=== PATIENT | female | born 1960 | race Two or more races ===

== ENCOUNTER 2016-07-18 18:21 | Emergency (ER) | payer MEDICAID ==
--- NOTE | 2016-07-18 19:36 | ED Physician Chart ---
Chief Complaint/HPI - Patient Information Allergies:: Allergies Allergy/AdvReac Type Severity Reaction Status Date / Time No Known Allergies Allergy Verified 07/18/16 18:30 Vitals:: Vital Signs - 8 hr 07/18/16 18:31 Temp 97.3 F HR 103 RR 16 BP 174/95 O2 Sat % 98 <Brian Harris - Last Filed: 07/18/16 21:25> - Patient Information Date Seen:: 07/18/16 Time Seen:: 19:10 Chief Complaint:: BODY ACHES, FATIGUE, ANXIETY, COUGH X 1WEEK History of Present Illness:: This 56-year-old female presents with a one-week history of multiple complaints consisting of severe anxiety, chills, body aches, cough productive of grayish sputum, nausea, vomiting, and diaphoresis. She thinks that she may have the flu or that a recent addition of medications, LATUDA, may be responsible. She has a past medical history of bipolar disorder and panic attacks. She denies any rash, angioedema, respiratory distress, or chest pain. She rates the severity of the combined symptoms as severe. Allergies:: Allergies Allergy/AdvReac Type Severity Reaction Status Date / Time No Known Allergies Allergy Verified 07/18/16 18:30 Vitals:: Vital Signs - 8 hr 07/18/16 18:31 Temp 97.3 F HR 103 RR 16 BP 174/95 O2 Sat % 98 <Amandeep Peterson - Last Filed: 07/19/16 09:56> Review of Systems - Review of Systems General/Constitutional: Fever, Chills, Diaphoresis, Loss of appetite Skin: No skin lesions, No rash, No bruising Head: Headache, No light-headedness Eyes: No loss of vision, No diplopia, Other ( Very light sensitive.) ENT: No earache, No nasal drainage, No sore throat, No tinnitus Neck: Neck pain, No swelling, No thyromegaly, No stiffness, No mass noted Cardio Vascular: No chest pain, No palpitations, No PND ( Mild respiratory distress.), No edema Pulmonary: Cough, No sputum, No wheezing GI: Nausea ( One episode of vomiting yesterday.), No diarrhea ( Generalized abdominal discomfort with no localized pain.), No melena, No constipation, No hematemesis G/U: No dysuria, No frequency, No hematuria ( Generalized arthralgias and myalgias.) Musculoskeletal: Back pain Psychiatric: Depression, Anxiety, No suicidal ideation, Other ( Prior history of bipolar disorder.) Hematopoietic: No bruising, No lymphadenopathy Allergic/Immuno: No urticaria, No angioedema Neurological: No syncope, No focal symptoms, No paresthesia, Headache, No seizure, No confusion, No vertigo <Amandeep Peterson - Last Filed: 07/19/16 09:56> Past Medical History - Past Medical History Past Medical History: HTN <Brian Harris - Last Filed: 07/18/16 21:25> Physical Exam - Physical Examination General/Constitutional: Awake, Well-developed, well-nourished, Alert, Ambulatory Other Gen/Cons comments:: People patient appears to be in moderate distress from Her complained of symptoms. Head: Atraumatic Eyes: Lids, conjuctiva normal, PERRL, EOMI Other Eyes comments:: No nystagmus. Skin: No ecchymosis, No lymphadenopathy Other Skin comments:: The patient has dry lips and chafing in the perioral region. ENMT: External ears, nose nl, Nasal exam nl, Oropharynx nl, Tonsils nl ( normal oral hydration.) Neck: Nontender, No JVD, No nuchal rigidity, No mass, No stridor Respiratory: Nl effort/Exclusion, Clear to Auscultation, No Wheeze/Rhonchi/ Rales ( The patient has a mild tachycardia in the 105 range. The rhythm is regular) Cardio Vascular: No murmur, gallop, rubs, NL S1 S2 ( The patient has good pulses in all four extremities.P) Other GI comments:: The abdomen is flat and nondistended. No surgical scars. Bowel sounds are active. Diffuse mild tenderness with no associated rebound or regarding. Rectal examination deferred at my discretion. Extremities: No tenderness or effusion, Full ROM, normal strength in all extremities, No edema ( No calf tenderness.) Neuro/Psych: Alert/oriented, DTR's symmetric, Normal sensory exam, Normal motor strength, Normal gait ( The patient's mood is and exaggerated anxiety and agitation. ) <Amandeep Peterson - Last Filed: 07/19/16 09:56> Labs/Radiology/EKG Results - Lab Results Results: Laboratory Tests 07/18/16 07/18/16 08:00 08:00 WBC 7.4 RBC 4.43 Hgb 13.4 Hct 38.9 MCV 87.8 MCH 30.2 MCHC Differential 34.4 RDW 12.1 Plt Count 278 MPV 7.8 Neutrophils % 68.9 Lymphocytes % 20.6 Monocytes % 6.9 Eosinophils % 3.2 Basophils % 0.4 Sodium 138 Potassium 3.5 Chloride 106 Carbon Dioxide 28.3 Anion Gap 7.2 BUN 11 Creatinine 0.8 Est GFR ( Amer) > 60.0 Est GFR (Non-Af Amer) > 60.0 BUN/Creatinine Ratio 13.8 Glucose 97 Calcium 9.6 <Brian Harris - Last Filed: 07/18/16 21:25> Assessment - Assessment General Assessment: CASE SUMMARY: this 56-year-old female with a prior history of bipolar disorder presents with a one-week history of severe anxiety, myalgias, and arthralgias. She's also had a cough productive of li sputum. just prior to onset of her symptoms her psychiatrist had added Latuda, whose side effects accounted for all the patients new complaints. Patient's complaints were addressed with ID Ativan and toradol with good relief. The patient was passed on to Dr. Longo for review of pending laboratory results. Laboratory results were within normal parameters. The patient was advised to follow up with her psychiatrist for adjustment of medications. Discharged in stable condition. <Amandeep Peterson - Last Filed: 07/19/16 09:56> ED Septic Shock - . Is Septic Shock (SBP<90, OR Lactate>4 mmol\L) present?: No - <6hrs of presentation: Vital Signs: Vital Signs - 8 hr 07/18/16 18:31 Temp 97.3 F HR 103 RR 16 BP 174/95 O2 Sat % 98 <Brian Harris - Last Filed: 07/18/16 21:25> - <6hrs of presentation: Vital Signs: Vital Signs - 8 hr 07/18/16 18:31 Temp 97.3 F HR 103 RR 16 BP 174/95 O2 Sat % 98 <Amandeep Peterson - Last Filed: 07/19/16 09:56> Reassessment (Disposition) - Reassessment Reassessment:: The patient's blood pressure was elevated (>120/80) but appears stable without evidence of hypertensive emergency or urgency. The patient was counseled about the risks hypertension urged to pursue outpatient monitoring and therapy within a week with her primary care physician. Patient's blood pressure was initially elevated when she arrived. Improved greatly after receiving the Ativan. The patient's labs are unremarkable. Discussed all the findings in detail with the patient. She feels much improved after the Ativan. We will give her a when necessary supply of Ativan. I have asked her to Follow-up with psychiatry. To discuss her medications. It is very likely she is suffering from a side effect for her medications. She will follow-up with her PCP and psychiatry within one to 2 days. Gave return to ER precautions. Patient understands and agrees with the plan. Reassessment Condition:: Improved - Diagnosis Diagnosis:: Anxiety possibly due to medication Elevated blood pressure without the diagnosis of hypertension - Aftercare/Follow up Instructions Aftercare/Follow-Up Instructions:: Counseled pt regarding lab results/diagnosis & need follow up, Refer to Discharge Instructions Medication Prescribed:: Ativan - Patient Disposition Discharge/Transfer:: Home Time:: 21:29 Condition at Disposition:: Improved <Brian Harris - Last Filed: 07/18/16 21:25> ED Discharge Plan <Brian Harris - Last Filed: 07/18/16 21:25> <Amandeep Peterson - Last Filed: 07/19/16 09:56> - Patient Disposition Admit/Discharge/Transfer: PT DISCHARGED HOME Condition at Disposition: Improved Instructions: Anxiety and Panic Attacks Additional Instructions: follow up with primary doctor within 1-2 days. take medications as prescribed.
[2016-07-18 20:24] LABS: % BASOPHILS 0.4 % (0.0-2.0); % EOSINOPHILS 3.2 % (0.0-5.0); % LYMPHOCYTES 20.6 % (20.0-50.0); % MONOCYTES 6.9 % (2.0-10.0); % NEUTROPHILS 68.9 % (40.0-80.0); HEMATOCRIT 38.9 % (35.0-45.0); HEMOGLOBIN 13.4 gm/dL (11.7-15.5); MEAN CELL VOLUME 87.8 fl (81-100); MEAN CORPUSCULAR HEMOGLOBIN 30.2 pg (27.0-31.0); MEAN CORPUSCULAR HGB CONC 34.4 pg (28.0-36.0); MEAN PLATELET VOLUME 7.8 fl; NEUTROPHILE ABSOLUTE 5.2 Th/cmm (1.8-8.0); PLATELET COUNT 278 Th/cmm (150-400); RED BLOOD COUNT 4.43 Mil/cmm (3.80-5.10); RED CELL DISTRIBUTION WIDTH 12.1 % (11.5-20.0); WHITE BLOOD COUNT 7.4 Th/cmm (4.8-10.8)
[2016-07-18 20:38] LABS: ANION GAP 7.2 (7.0-16.0); BUN - UREA NITROGEN 11 mg/dL (7-25); BUN/CREATININE RATIO 13.8; CALCIUM SERUM 9.6 mg/dL (8.6-10.3); CARBON DIOXIDE 28.3 mEq/L (21.0-31.0); CHLORIDE 106 mEq/L (98-107); CREATININE - SERUM 0.8 mg/dL (0.6-1.2); GLUCOSE 97 mg/dL (70-105); POTASSIUM SERUM 3.5 mEq/L (3.5-5.1); SODIUM SERUM 138 mEq/L (136-145)
== END 2016-07-18 22:10 | disposition home or self-care (01) ==
LOC: ER 18:21
DX: F41.9 Anxiety disorder, unspecified (principal); I10 Essential (primary) hypertension
CPT/HCPCS: 99284; 96374; 96375; 36415; 85025; 80048; J1885; J2060; Z7502